=== PATIENT | female | born 1985 | race Caucasian/White ===

== ENCOUNTER 2018-11-02 00:06 | Emergency (ER) | payer MEDICAID, OTHER ==
[2018-11-02] MEDS ORDERED: Ondansetron 4 MG/2 ML SDV IVPUSH ONE (00:28)
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
[2018-11-02] MEDS ORDERED: Sodium Chloride 0.9% 10 ML Syringe FLUSH PRN (00:34)
[2018-11-02] MEDS ORDERED: Ketorolac 30 MG/ML SDV IVPUSH ONE (01:24)
[2018-11-02] MEDS ORDERED: diphenhydrAMINE 50 MG/ML SDV IVPUSH ONE (01:24)
[2018-11-02] MEDS ORDERED: Sodium Chloride 0.9% 1,000 ML IV ONE (01:24)
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
[2018-11-02 08:21] VITALS: BP 118/66
== END 2018-11-02 02:35 | disposition home or self-care (01) ==
LOC: SUPCPDRO 00:06 → KA.ED 00:06
DX: R51 Headache (principal); M25.562 Pain in left knee; Z88.0 Allergy status to penicillin; Z98.51 Tubal ligation status; Z98.890 Other specified postprocedural states; V89.2XXA Person injured in unspecified motor-vehicle accident, traffic, initial encounter; Y92.89 Other specified places as the place of occurrence of the external cause
CPT/HCPCS: 70450; 72125; 72170; 73562-LT; 96361; 96374; 96375; 99285; J1200; J1885; J2405; J7030

== ENCOUNTER 2019-02-25 19:03 | Emergency (ER) | payer BC ==
[2019-02-25 19:16] VITALS: BP 101/68
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
[2019-02-25] MEDS: Acetaminophen 325 MG Tab PO ONE (20:00)
[2019-02-25] MEDS: Azithromycin 250 MG Tab PO ONE (20:00)
== END 2019-02-25 20:05 | disposition home or self-care (01) ==
LOC: KA.ED 19:03
DX: J02.9 Acute pharyngitis, unspecified (principal); Z88.0 Allergy status to penicillin
CPT/HCPCS: 99283; A9270-GY

== ENCOUNTER 2019-04-20 07:01 | Day surgery (SDC) | payer BC ==
[~2019-04-20 07:01] MED LIST: Bacitracin/Neomycin/Polymyxin B Oint 0.9 GM U/D Packet ONE; Bupivacaine 0.5%/EPINEPHrine 1:200,000 30 ML SDV ONE; Dexamethasone 4 MG/ML SDV ONE; Lactated Ringers 1,000 ML ONE; Midazolam 1 MG/ML 2 ML SDV ONE; Neostigmine Methylsulfate 10 MG/10 ML MDV ONE; Propofol 200 MG/20 ML SDV ONE; Sodium Chloride 0.9% 10 ML Syringe FLUSH PRN; ceFAZolin 1 GM Vial ONE; fentaNYL 250 MCG/5 ML SDV ONE
[2019-04-20] MEDS ORDERED: ePHEDrine 50 MG/ML SDV ONE (07:03)
[2019-04-20] MEDS: Lactated Ringers 1,000 ML IV SCH (07:48)
[2019-04-20] MEDS ORDERED: Lactated Ringers 1,000 ML ONE (08:03)
[2019-04-20] MEDS ORDERED: Ondansetron 4 MG/2 ML SDV IV ONE (08:20)
[2019-04-20] MEDS ORDERED: Dexamethasone 4 MG/ML SDV IV ONE (08:20)
[2019-04-20] MEDS ORDERED: Glycopyrrolate 0.2 MG/ML 5 ML MDV IV ONE (08:20)
[2019-04-20] MEDS ORDERED: Rocuronium 50 MG/5 ML Vial IV ONE (08:20)
[2019-04-20] MEDS ORDERED: Succinylcholine 200 MG/10 ML MDV IV ONE (08:20)
[2019-04-20] MEDS ORDERED: ceFAZolin 1 GM Vial IV ONE (08:20)
[2019-04-20] MEDS ORDERED: Neostigmine Methylsulfate 10 MG/10 ML MDV IV ONE (08:20)
[2019-04-20] MEDS ORDERED: Propofol 200 MG/20 ML SDV IV ONE (08:20)
[2019-04-20] MEDS ORDERED: fentaNYL 250 MCG/5 ML SDV IV ONE (08:20)
[2019-04-20] MEDS ORDERED: Ketorolac 30 MG/ML SDV IVPUSH ONE (08:20)
[2019-04-20] MEDS ORDERED: Midazolam 1 MG/ML 2 ML SDV IV ONE (08:20)
--- NOTE | 2019-04-20 08:28 | PCM.PN ---
- General Info Date of Service: 04/20/19 - Review of Systems Systems Review Comment:: 33-year-old female with history of right upper quadrant abdominal pain. She has known cholelithiasis diagnosed with ultrasound. She presents today for cholecystectomy. She is medically stable to proceed today. Her recent history and physical is reviewed and no significant changes are noted. I have discussed the proposed cholecystectomy with the patient. Risks such as but not limited to bleeding, infection, possible need to convert to laparotomy and organ injury or reviewed. She agrees to proceed. - Patient Data Vitals - Most Recent: Last Vital Signs Temp 97.5 F 04/20/19 07:16 Pulse 60 04/20/19 07:16 Resp 16 04/20/19 07:16 BP 106/65 04/20/19 07:16 Pulse Ox 97 04/20/19 07:16 Weight - Most Recent: 67.313 kg Lab Results Last 24 Hours: Laboratory Results - last 24 hr 04/20/19 Range/Units 07:22 Urine HCG, Qual Negative (NEGATIVE) Med Orders - Current: Current Medications Lactated Ringer's (Ringers, Lactated) 1,000 mls @ 30 mls/hr IV ASDIRECTED LUPE Last Admin: 04/20/19 07:48 Dose: 30 mls/hr Sodium Chloride (Saline Flush) 10 ml FLUSH Q8HR PRN PRN Reason: keep vein open Discontinued Medications Bupivacaine HCl/Epinephrine Bitart (Marcaine 0.5%/Epinephrine 1:200,000) Confirm Administered Dose 30 ml .ROUTE .STK-MED ONE Stop: 04/20/19 06:51 Cefazolin Sodium (Ancef) Confirm Administered Dose 1 gm .ROUTE .STK-MED ONE Stop: 04/20/19 06:51 Cefazolin Sodium (Ancef) Confirm Administered Dose 2 gm .ROUTE .STK-MED ONE Stop: 04/20/19 07:01 Dexamethasone (Dexamethasone) Confirm Administered Dose 4 mg .ROUTE .STK-MED ONE Stop: 04/20/19 07:02 Ephedrine Sulfate (Ephedrine Sulfate) Confirm Administered Dose 50 mg .ROUTE .STK-MED ONE Stop: 04/20/19 07:04 Fentanyl (Sublimaze) Confirm Administered Dose 250 mcg .ROUTE .STK-MED ONE Stop: 04/20/19 07:01 Lactated Ringer's (Ringers, Lactated) Confirm Administered Dose 1,000 mls @ as directed .ROUTE .STK-MED ONE Stop: 04/20/19 06:52 Midazolam HCl (Versed 1 Mg/Ml) Confirm Administered Dose 2 mg .ROUTE .STK-MED ONE Stop: 04/20/19 07:02 Neomycin/Polymyxin/Bacitracin (Triple Antibiotic Oint) Confirm Administered Dose 2 each .ROUTE .STK-MED ONE Stop: 04/20/19 06:54 Neostigmine Methylsulfate (Neostigmine Methylsulfate) Confirm Administered Dose 10 mg .ROUTE .STK-MED ONE Stop: 04/20/19 07:02 Propofol (Diprivan 20 Ml) Confirm Administered Dose 200 mg .ROUTE .STK-MED ONE Stop: 04/20/19 07:02 - Problem List Review Problem List Initiated/Reviewed/Updated: Yes - My Orders Last 24 Hours: My Active Orders 04/19/19 09:45 Resuscitation Status Routine 04/20/19 07:00 Antiembolic Devices [RC] PER UNIT ROUTINE Patient to Empty Bladder [RC] ASDIRECTED Peripheral IV Care [RC] . DIRECTED Verify Patient Consent Obtain [RC] ASDIRECTED Vital Signs [RC] PER UNIT ROUTINE Lactated Ringers [Ringers, Lactated] 1,000 ml IV ASDIRECTED Sodium Chloride 0.9% [Saline Flush] 10 ml FLUSH Q8HR PRN Peripheral IV Insertion Adult [OM.PC] Routine Sequential Compression Device [OM.PC] Routine 04/20/19 Breakfast Nothing Per Oral Diet [DIET] - Assessment Assessment:: Symptomatic cholelithiasis - Plan Plan:: Cholecystectomy
[2019-04-20] MEDS ORDERED: Ketorolac 30 MG/ML SDV ONE (08:36)
[2019-04-20] MEDS: Bacitracin/Neomycin/Polymyxin B Oint 0.9 GM U/D Packet TOP ONE (08:58)
[2019-04-20] MEDS: Bupivacaine 0.5%/EPINEPHrine 1:200,000 30 ML SDV INFILT ONE ×2 (08:58)
--- NOTE | 2019-04-20 10:09 | PCM.OPNOTE ---
- General Post-Op/Procedure Note Date of Surgery/Procedure: 04/20/19 Operative Procedure(s): Laparoscopic Cholecystectomy Findings: Cholelithiasis without acute gallbladder inflammation Pre Op Diagnosis: Symptomatic Cholelithiasis Post-Op Diagnosis: Same Anesthesia Technique: General ET Tube Primary Surgeon: Eric Choi Pathology: Gallbladder EBL in mLs: 10 Complications: None Condition: Good
[2019-04-20 12:42] VITALS: BP 111/69
--- NOTE | 2019-04-20 16:19 | OR ---
DATE OF SURGERY: 04/20/2019 SURGEON: Eric Choi MD PREOPERATIVE DIAGNOSIS: Symptomatic cholelithiasis. POSTOPERATIVE DIAGNOSIS: Symptomatic cholelithiasis. OPERATION PERFORMED: Laparoscopic cholecystectomy. INDICATIONS FOR SURGERY: This 33-year-old female has been having symptoms of right upper quadrant abdominal pain. Workup has identified cholelithiasis, and she comes for cholecystectomy. FINDINGS: The gallbladder does contain stones. It is not acutely inflamed. The adjacent liver and other organs as viewed laparoscopically appeared normal. There, patient did have a small amount of adhesions of the omentum to the anterior abdominal wall from previous umbilical hernia repair. DESCRIPTION OF PROCEDURE: The patient was taken to the operating room. She was given general endotracheal anesthesia. Her abdomen was sterilely prepped and draped. A supraumbilical stab wound incision was then made. Through this, a Veress needle was inserted, and pneumoperitoneum via this needle to a pressure of 15 mmHg was achieved with carbon dioxide. The Veress needle was then replaced with a 12 mm trocar into which the 5 mm 0-degree laparoscopic camera was inserted. Under direct visualization, 5 mm trocars were placed in the subxiphoid midline and in 2 areas of the right abdomen. All trocar sites were infiltrated with Marcaine prior to incision. Intra-abdominal inspection was carried out and attention was turned to the gallbladder. It was secured with grasping forceps, placed through the lateral trocars, and retracted superiorly and anteriorly. Adhesions to the undersurface of the gallbladder were carefully taken down with careful, sharp, and blunt dissection, and then the peritoneum and fatty tissue overlying the cystic duct and 2 branches of the cystic artery were carefully cleared. The branches of the cystic artery are doubly clipped and divided once they were isolated. The triangle of Calot was cleared. The cystic duct was clearly identified including its junction with the gallbladder. It was milked and then doubly clipped and divided near the gallbladder with great care being used to avoid any injury or compromise to the common bile duct. The gallbladder was then dissected free from the undersurface of the liver using the hook cautery device and the gallbladder was then extracted through the umbilical trocar site. The operative region was copiously irrigated and full hemostasis of the gallbladder bed was assured with the use of cautery. Adhesions to the undersurface of the umbilicus were taken down to limit them as a possible source of future problems. With no sign of bleeding or any other complication, the trocars were removed and the pneumoperitoneum was evacuated. The fascia of the umbilical trocar site was closed with a [id number] 0 Vicryl suture. Wounds were irrigated with Betadine and saline solution. Skin incisions were approximated with interrupted 4-0 Vicryl in a subcuticular stitch. Benzoin and Steri-Strips were applied. These were followed by antibiotic ointment and sterile dressings. The patient was awakened, extubated, and taken from the operating room in satisfactory condition. ESTIMATED BLOOD LOSS: 10 mL. COMPLICATIONS: None. PROGNOSIS: Good. /[id number]/MODL
== END 2019-04-20 12:40 | disposition home or self-care (01) ==
LOC: KA.SDS 07:01
PROVIDERS: ATTEND Surgery
DX: K80.10 Calculus of gallbladder with chronic cholecystitis without obstruction (principal); F41.9 Anxiety disorder, unspecified; Z88.0 Allergy status to penicillin; Z79.899 Other long term (current) drug therapy
CPT/HCPCS: 81025; J0330; J0690; J1100; J1885; J2250; J2405; J2704; J2710; J3010; J3490; J7120

== ENCOUNTER 2020-10-07 18:30 | Emergency (ER) | payer BC ==
[2020-10-07 18:42] VITALS: BP 116/77; PULSE 75
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
--- NOTE | 2020-10-07 19:32 | CR ---
[id number] RAD/RAD Chest Portable EXAM: PORTABLE CHEST INDICATION: Shortness of breath. COMPARISON: July 08, 2016. DISCUSSION: The heart and lungs are normal in appearance. IMPRESSION: 1. Negative exam. Musa Camarena MD 10/07/20 1931 Thank you for allowing us to participate in the care of your patient.
[2020-10-07 19:38] LABS: ANION GAP 11.9 mmol/L (5-15); CHLORIDE,CL 106 mmol/L (98-115); SODIUM,NA 140 mmol/L (136-145)
== END 2020-10-07 20:06 | disposition home or self-care (01) ==
LOC: KA.ED 18:30
DX: R06.02 Shortness of breath (principal); R52 Pain, unspecified; R11.0 Nausea; Z88.0 Allergy status to penicillin; Z79.899 Other long term (current) drug therapy; Z87.891 Personal history of nicotine dependence; Z20.828 Contact with and (suspected) exposure to other viral communicable diseases
CPT/HCPCS: 36415; 71045; 80053; 85025; 99284; 99285-25

== ENCOUNTER 2023-08-26 21:02 | Emergency (ER) | payer BC ==
[2023-08-26 21:20] VITALS: BP 109/77; PULSE 60
[2023-08-26] MEDS ORDERED: Cefdinir 300 MG Cap PO ONE (21:36)
== END 2023-08-26 21:50 | disposition home or self-care (01) ==
LOC: KA.ED 21:02
DX: H66.91 Otitis media, unspecified, right ear (principal); Z88.0 Allergy status to penicillin; Z91.048 Other nonmedicinal substance allergy status; Z79.899 Other long term (current) drug therapy
CPT/HCPCS: 99282; 99283; A9270-GY

== ENCOUNTER 2024-03-14 19:51 | Emergency (ER) | payer BC ==
[2024-03-14 20:07] VITALS: BP 106/75; PULSE 78
[2024-03-14] MEDS: diphenhydrAMINE 25 MG Cap PO ONE (20:44)
[2024-03-14] MEDS: Ondansetron 4 MG Tab.DIS PO ONE ×2 (20:44→20:46)
[2024-03-14] MEDS: Ketorolac 30 MG/ML SDV IM ONE (20:51)
== END 2024-03-14 22:00 | disposition home or self-care (01) ==
LOC: KA.ED 19:51
DX: G40.919 Epilepsy, unspecified, intractable, without status epilepticus (principal); Z79.899 Other long term (current) drug therapy; Z88.0 Allergy status to penicillin; Z91.048 Other nonmedicinal substance allergy status
CPT/HCPCS: 70450; 96372; 99284; A9270-GY; J1885

== ENCOUNTER 2025-04-03 05:56 | Emergency (ER) | payer MEDICAID ==
[2025-04-03] MEDS: Sodium Chloride 0.9% 1,000 ML IV ONE (06:12)
[2025-04-03] MEDS: Ondansetron 4 MG/2 ML SDV IVPUSH ONE (06:13)
[2025-04-03] MEDS: diphenhydrAMINE 50 MG/ML SDV IVPUSH ONE (06:16)
[2025-04-03] MEDS: Ketorolac 30 MG/ML SDV IVPUSH ONE (06:20)
[2025-04-03] MEDS: Sodium Chloride 0.9% 10 ML Syringe FLUSH PRN (06:22)
[2025-04-03 07:20] VITALS: BP 100/77; PULSE 68
== END 2025-04-03 07:21 | disposition home or self-care (01) ==
LOC: KA.ED 05:56
DX: G43.919 Migraine, unspecified, intractable, without status migrainosus (principal); Z88.0 Allergy status to penicillin; Z91.048 Other nonmedicinal substance allergy status; Z79.899 Other long term (current) drug therapy; Z87.891 Personal history of nicotine dependence
CPT/HCPCS: 96361; 96374; 96375; 99283-25; 99284; J1200; J1885; J2405; J7030

== ENCOUNTER 2025-04-18 21:26 | Emergency (ER) | payer MEDICAID ==
[2025-04-18] MEDS: Sodium Chloride 0.9% 1,000 ML IV ONE (21:43)
[2025-04-18] MEDS: Ondansetron 4 MG/2 ML SDV IVPUSH ONE (22:04)
[2025-04-18] MEDS: Ketorolac 30 MG/ML SDV IVPUSH ONE (22:06)
[2025-04-18] MEDS: diphenhydrAMINE 50 MG/ML SDV IVPUSH ONE (22:10)
[2025-04-18 23:04] VITALS: BP 109/70; PULSE 76
== END 2025-04-18 23:08 | disposition home or self-care (01) ==
LOC: KA.ED 21:26
DX: G43.909 Migraine, unspecified, not intractable, without status migrainosus (principal); Z88.0 Allergy status to penicillin; Z91.048 Other nonmedicinal substance allergy status
CPT/HCPCS: 96361; 96374; 96375; 99283; 99283-25; J1200; J1885; J2405; J7030